=== PATIENT | female | born 1955 | race Caucasian/White ===

== ENCOUNTER 2016-04-01 23:31 | Inpatient (IN) | payer MEDICARE, OTHER ==
[~2016-04-01] VITALS: Ht 167.6 cm; Wt 86.1 kg
[2016-04-01] MEDS ORDERED: ALBUTEROL 0.5% (NEB) 2.5 MG/0.5 ML AMP HHN STA (23:35)
[2016-04-01] MEDS ORDERED: ASPIRIN 325 MG TAB PO STA (23:35)
[2016-04-01] MEDS ORDERED: ONDANSETRON 4 MG INJ IV STA (23:35)
[2016-04-02] VITALS (11 sets, daily range): BP systolic 102–153; BP diastolic 56–94; PULSE 75–87; RESP 15–20; TEMP 98.2; Ht 167.6 cm; Wt 86.1 kg
[2016-04-02] MEDS ORDERED: IPRATROPIUM (NEB) 0.5 MG/2.5 ML AMP HHN ONE
--- NOTE | 2016-04-02 | RADRPT ---
PROCEDURE: XR Chest. CLINICAL INDICATION: Patient experiencing Chest Pain. TECHNIQUE: Single portable chest COMPARISON: None FINDINGS: The cardiomediastinal silhouette is within normal limits. Vascular congestion and bilateral patchy air space disease suggestive of pulmonary edema. No pleural effusion or focal consolidation. No pne umothorax. The osseous structures and soft tissues are unremarkable. IMPRESSION: Vascular congestion versus pneumonia. Correlate clinically. No pleural effusion. RPTAT:AAJJ Humphrey Machuca Physician Date Time Electronically viewed and signed by Humphrey Machuca Physician on 04/02/2016 00:00 ROXANNA/
[2016-04-02] MEDS ORDERED: VANCOMYCIN 1 GM (PMX) 250 ML IVPB SCH (00:30)
[2016-04-02] MEDS ORDERED: PIPER-TAZO 3.375 GM IV (PMX) 100 ML IVPB ONE (00:30)
[2016-04-02 00:34] LABS: INR 0.92; PROTIME 12.4 Sec (12.2-14.2)
[2016-04-02 00:35] LABS: PARTIAL THROMBOPLASTIN TIME 25.2 Sec (25.0-35.0)
[2016-04-02 00:36] LABS: AADO2 Arterial 175.2 mmHg (7.0-24.0); Arterial COHb 7.7 % (0.0-3.0); Arterial Fraction of Oxyhgb 87.5 % (93.0-99.0); Arterial HCO3 22.5 mmol/L (22.0-26.0); Arterial MetHb 0.3 % (0.0-1.5); Arterial Total Hemglobin 15.3 g/dl (12.0-18.0); Blood Gas IEPAP 16 / 6; MODE MASK - BIPAP
[2016-04-02 00:37] LABS: TROPONIN-I 0.039 ng/ml (0.00-0.12)
[2016-04-02 00:38] LABS: CALCIUM 8.4 mg/dl (8.4-10.2); CREATININE 0.91 mg/dl (0.44-1.00); POTASSIUM 3.8 mmol/L (3.5-5.1)
[2016-04-02 00:49] LABS: BASOPHIL # 0.1 10^3/ul (0.0-0.1); BASOPHILS % 0.6 % (0.0-2.0); EOSINOPHILS # 0.2 10^3/ul (0.0-0.5); EOSINOPHILS % 1.6 % (0.0-7.0); HEMATOCRIT 45.9 % (37.0-47.0); HEMOGLOBIN 15.4 g/dl (12.0-16.0); LYMPHOCYTES # 4.6 10^3/ul (0.8-2.9); LYMPHOCYTES % 33.4 % (15.0-51.0); MEAN CORPUSCULAR HEMOGLOBIN 29.8 pg (29.0-33.0); MEAN CORPUSCULAR HGB CONC 33.5 g/dl (32.0-37.0); MONOCYTE # 1.8 10^3/ul (0.3-0.9); MONOCYTES % 13.2 % (0.0-11.0); NEUTROPHIL # 7.1 10^3/ul (1.6-7.5); NEUTROPHILS % 51.2 % (39.0-77.0); PLATELET COUNT 260 10^3/UL (140-440); RED BLOOD COUNT 5.15 10^6/ul (4.20-5.40); RED CELL DISTRIBUTION WIDTH 16.5 % (11.5-14.5); UNCORRECTED WBC 13.9 10^3/ul (4.8-10.8); WHITE BLOOD COUNT 13.9 10^3/ul (4.8-10.8)
[2016-04-02 00:55] LABS: CONDITION 1; LH ANALYZER COMMENTS 1
[2016-04-02] MEDS ORDERED: SOD CHLORIDE 0.9% 250 ML IV ONE (02:00)
[2016-04-02] MEDS ORDERED: SOD CHLORIDE 0.9% 1,000 ML IV ONE (02:00)
--- NOTE | 2016-04-02 02:48 | RADRPT ---
PROCEDURE: XR Chest. CLINICAL INDICATION: Reevaluate for pulmonary edema. TECHNIQUE: Single frontal view of the chest was obtained COMPARISON: Chest dated 04/01/2016. FINDINGS: Cardiomegaly. Patchy bilateral air space disease with pulmonary congestion and atelectasis at the right mid lung a nd at the left lung and lung base. Otherwise there is improved aeration bilateral lungs over interva l. Findings are compatible with decreased/improved mild failure. There is no evident pulmonary terrence a. There is no pleural effusion or pneumothorax. IMPRESSION: Decreased mild failure. RPTAT: [facility] Physician Rupali Date Time Electronically viewed and signed by Physician Rupali on 04/02/2016 02:48 RS/
[2016-04-02 03:13] LABS: AADO2 Arterial 211.5 mmHg (7.0-24.0); Arterial Base Excess -2.3 mmol/L (-3.0-3); Arterial COHb 4.1 % (0.0-3.0); Arterial Fraction of Oxyhgb 91.4 % (93.0-99.0); Arterial HCO3 24.5 mmol/L (22.0-26.0); Arterial MetHb 0.3 % (0.0-1.5); Arterial Total Hemglobin 13.6 g/dl (12.0-18.0); Blood Gas IEPAP 18 / 6; Blood Gas PS 12; MODE MASK - BIPAP
[2016-04-02 03:48] LABS: ADD UMIC YES; URINE BILIRUBIN (Dip) NEGATIVE (NEGATIVE); URINE BLOOD (Dip) NEGATIVE (NEGATIVE); URINE COLOR YELLOW (YELLOW); URINE KETONES (Dip) NEGATIVE (NEGATIVE); URINE LEUKOCYTE ESTERASE (Dip) NEGATIVE (NEGATIVE); URINE NITRITE (Dip) NEGATIVE (NEGATIVE); URINE TOTAL PROTEIN (Dip) 2+ (NEGATIVE); URINE UROBILINOGEN (Dip) 0.2 E.U./dL (0.1-1.0)
[2016-04-02 04:37] LABS: BACTERIA,URINE MODERATE; SQUAMOUS EPITHELIAL CELL,UR FEW; URINE RBCS 0-2 /HPF (0)
--- NOTE | 2016-04-02 05:59 | ERA ---
ER Documentation Chief Complaint Date/Time DATE: 04/02/16 TIME: 05:49 Chief Complaint SOB HPI This 60-year-old female came in for severe respiratory distress from her psychiatric inpatient facility. States she been short of breath for 2 days. She is in respiratory extremis now and can only speak in shaking her head and a couple words at a time. Denies any pain including chest pain. States that she has felt like she had fevers and chills and believes that she may have been developing pneumonia. Has no nausea. ROS All systems reviewed and are negative except as per history of present illness. Allergies Allergies: Coded Allergies: Sulfa (Sulfonamide Antibiotics) (Verified Allergy, Severe, 04/02/16) PMhx/Soc History of Surgery: No Anesthesia Reaction: No Hx Neurological Disorder: No Hx Respiratory Disorders: No Hx Cardiac Disorders: Yes (HTN ) Hx Psychiatric Problems: Yes (DEPRESSION) Hx Miscellaneous Medical Probl: No Hx Alcohol Use: Yes (OCCASIONAL) Hx Substance Use: No Hx Tobacco Use: Yes Smoking Status: Current every day smoker Physical Exam Vitals Vital Signs Date Time Temp Pulse Resp B/P Pulse Ox O2 Delivery O2 Flow Rate FiO2 04/02/16 05:00 82 20 103/71 95 BIPAP 04/02/16 04:00 98.4 83 20 99/68 94 BIPAP 04/02/16 03:00 89 20 102/70 98 BIPAP 04/02/16 02:50 90 94 30 04/02/16 02:05 101 94 50 04/02/16 02:00 100 20 95/61 96 BIPAP 04/02/16 00:10 140 95 50 04/01/16 23:40 101.0 152 28 161/135 83 04/01/16 23:40 Non Rebreather 15.0 04/01/16 23:40 Non Rebreather 15 04/01/16 23:35 150 100 100 Physical Exam Const: [] Severe respiratory distress Head: Atraumatic Eyes: Normal Conjunctiva ENT: Normal External Ears, Nose and Mouth. Neck: Full range of motion..~ No meningismus. Resp: Right basilar rhonchorous breath sounds, bilateral expiratory wheezes, tachypnea Cardio: Significant regular tachycardia no murmurs Abd: Soft, non tender, non distended. Normal bowel sounds Skin: No petechiae or rashes, very diaphoretic Back: No midline or flank tenderness Ext: No cyanosis, or edema Neur: Awake and alert Psych: Normal Mood and Affect Result Diagram: 04/01/16 2339 04/01/16 2339 Results 24 hrs Laboratory Tests Test 04/01/16 23:35 04/01/16 23:39 04/02/16 02:05 04/02/16 03:03 Arterial Blood HCO3 22.5mmol/L 24.5mmol/L Arterial Blood Base Excess -9.0mmol/L -2.3mmol/L Arterial Blood Oxygen Saturation 95.1mmHG 95.6mmHG Sumanth Test N/A N/A Arterial Blood Gas Puncture Site Right Brachial Right Brachial Arterial Blood Carboxyhemoglobin 7.7% 4.1% Arterial Blood Date Drawn 04/01/2016 11:50:10 PM 04/02/2016 3:00:49 AM Arterial Blood Methemoglobin 0.3% 0.3% Arterial Blood pCO2 (Temp correct) 76.0mmhg 50.5mmhg Arterial Blood pH (Temp corrected) 7.089 7.304 Arterial Blood pO2 (Temp corrected) 95.8mmHG 88.2mmHG Blood Gas A-a O2 Differential 175.2mmHg 211.5mmHg Blood Gas Actual Respiration Rate 42 20 Blood Gas Critical Value Read Back Humphrey GU DR. Blood Gas IPAP/EPAP Ratio Blood Gas Modality MASK - BIPAP MASK - BIPAP Blood Gas Notified Time 04/02/2016 12:36:10 AM 04/02/2016 3:12:55 AM Blood Gas Notified Whom BL BL Blood Gas Respiration Rate 24.0 18.0 Blood Gas Specimen Source Blood arterial Blood arterial Blood Gas Temperature 37.0C 37.0C FiO2 50.0% 50.0% Oxyhemoglobin Percent 87.5% 91.4% Total Hemoglobin 15.3g/dl 13.6g/dl Activated Partial Thromboplast Time 25.2Sec Anion Gap 19 B-Type Natriuretic Peptide 961PG/ML Basophils # 0.110^3/ul Basophils % 0.6% Blood Morphology Comment Blood Urea Nitrogen 15mg/dl Calcium Level 8.4mg/dl Carbon Dioxide Level 22mmol/L Chloride Level 105mmol/L Creatinine 0.91mg/dl Eosinophils # 0.210^3/ul Eosinophils % 1.6% Glucose Level 285mg/dl Hematocrit 45.9% Hemoglobin 15.4g/dl INR International Normalized Ratio 0.92 Lactic Acid Level 3.9mmol/L 1.8mmol/L Lymphocytes # 4.610^3/ul Lymphocytes % 33.4% Mean Corpuscular Hemoglobin 29.8pg Mean Corpuscular Hemoglobin Concent 33.5g/dl Mean Corpuscular Volume 89.0fl Mean Platelet Volume 9.0fl Monocytes # 1.810^3/ul Monocytes % 13.2% Neutrophils # 7.110^3/ul Neutrophils % 51.2% Nucleated Red Blood Cells # 0.010^3/ul Nucleated Red Blood Cells % 0.0/100WBC Platelet Count 92762^3/UL Potassium Level 3.8mmol/L Prothrombin Time 12.4Sec Prothrombin Time Ratio 1.0 Red Blood Count 5.1510^6/ul Red Cell Distribution Width 16.5% Sodium Level 142mmol/L Troponin I 0.039ng/ml White Blood Count 13.910^3/ul Blood Gas Pressure Support 12 Test 04/02/16 03:08 Urine Amorphous Phosphates Urine Amorphous Urates FEW Urine Bacteria MODERATE Urine Bilirubin NEGATIVE Urine Clarity CLEAR Urine Color YELLOW Urine Fine Granular Casts FEW Urine Glucose 0.1%% Urine Hemoglobin NEGATIVE Urine Ketones NEGATIVE Urine Leukocyte Esterase NEGATIVE Urine Microscopic RBC 0-2/HPF Urine Microscopic WBC 0-2/HPF Urine Nitrite NEGATIVE Urine Specific [place] >=1.030 Urine Squamous Epithelial Cells FEW Urine Total Protein 2+ Urine Urobilinogen 0.2 E.U./dL Urine pH 5.5 Current Medications Medications (Trade) Dose Ordered Sig/Swathi Route PRN Reason Start Time Stop Time Status Last Admin Dose Admin Aspirin (Aspirin) 325 mg ONCE STAT PO 04/01/16 23:35 04/01/16 23:37 DC 04/02/16 00:34 Ondansetron HCl (Zofran Inj) 4 mg ONCE STAT IV 04/01/16 23:35 04/01/16 23:37 DC 04/02/16 00:34 Albuterol (Proventil 0.5% (Neb)) 10 mg ONCE STAT HHN 04/01/16 23:35 04/01/16 23:37 DC 04/01/16 23:40 Ipratropium [place] 1 mg 1 mg ONCE ONCE HHN 04/02/16 00:00 04/02/16 00:01 DC 04/01/16 23:40 Vancomycin HCl 250 ml @ 125 mls/hr ONCE IVPB 04/02/16 00:30 04/02/16 02:29 DC 04/02/16 00:58 Piperacillin Sod/ Tazobactam Sod 100 ml @ 200 mls/hr ONCE ONCE IVPB 04/02/16 00:30 04/02/16 00:59 DC 04/02/16 00:32 Sodium Chloride 1,000 ml @ 1,000 mls/hr Q1H ONCE IV 04/02/16 02:00 04/02/16 02:59 DC 04/02/16 01:45 Sodium Chloride (NS) 250 ml @ 250 mls/hr Q1H ONCE IV 04/02/16 02:00 04/02/16 02:59 DC 04/02/16 01:51 Procedures/MDM Pneumonia with sepsis and significant respiratory distress yesterday failure requiring BiPAP. Patient was immediately placed on BiPAP and her oxygenation began to improve from hypoxic status to mid 90s. She was given a large albuterol and Atrovent breathing treatments through the BiPAP. She remained extremely tachycardic but this gradually started to resolve. She was initially very hypertensive and this resolved with improvement of her respiratory status. She was treated with vancomycin and Zosyn and given sepsis does IV fluids. There is a mildly elevated BNP the possibility of some pulmonary edema on the chest x-ray. Repeat check x-ray was obtained and does not show any significant change in pulmonary edema. Patient did have a lactic acidosis with significant acidotic and her first blood gas. Fluids and continued BiPAP corrected this deficit. No signs of acute coronary syndrome. This patient significant his stream is still dependent on BiPAP the CO2 of 50 that would likely rise a few off BiPAP and admitting her to the ICU for further management. A spoke with Dr. Pineda who will be admitting. Critical care time 48 minutes: Includes management of hypoxic respiratory failure with use of nonevasive positive pressure ventilation, serious consideration of intubation, early antibiotic administration, very careful fluid administration, chart review, at least 20 minutes spent at the patient's bedside assessing his status all she was an extremist, repeat visits the patient 's bedside to reassess status, discussion with patient admitting doctor. This does not include any billable procedures EKG interpretation: Sinus tachycardia rate of 155, normal axis, no ST-T wave changes concerning for acute ischemia surveillance system monitor interpretation extreme sinus tachycardia gradually resolved with no other arrhythmias Chest x-ray interpretation: Right-sided lower patchy pneumonia, no pneumothorax , no widened mediastinum, no fractures Departure Diagnosis: Primary Impression: Sepsis due to pneumonia Additional Impressions: Acute respiratory failure with hypoxia Lactic acidosis Hyperglycemia Condition: Serious MELISSANANCYELDIONNE BANUELOS Apr 02, 2016 05:59
[2016-04-02 06:40] LABS: CK-MB 1.87 ng/ml (0.0-2.4)
[2016-04-02] MEDS ORDERED: CEFTRIAXONE 1 GM/50 ML (PMX) 50 ML IVPB SCH (07:00)
[2016-04-02] MEDS ORDERED: NACL 0.9% 3 ML SYG IV SCH (07:00)
[2016-04-02] MEDS ORDERED: morphine 2 MG INJ IV PRN (07:00)
[2016-04-02] MEDS ORDERED: DOCUSATE SODIUM 100 MG CAP PO PRN (07:00)
[2016-04-02] MEDS ORDERED: ONDANSETRON 4 MG INJ IV PRN (07:00)
[2016-04-02] MEDS ORDERED: HYDROCODONE/APAP (5/325) TAB PO PRN (07:00)
[2016-04-02] MEDS ORDERED: ACETAMINOPHEN 325 MG TAB PO PRN (07:00)
[2016-04-02 07:09] LABS: TROPONIN-I 0.098 ng/ml (0.00-0.12)
--- NOTE | 2016-04-02 09:47 | HP ---
DATE OF ADMISSION: 04/02/2016 TIME: 6:30 a.m. CHIEF COMPLAINT: Shortness of breath. HISTORY OF PRESENT ILLNESS: The patient is a 60-year-old female with a history of psychiatric disorder. The patient presents for psychiatric inpatient facility with respiratory dist ress. The patient has been short of breath for the past 2 days. The patient is on BiPAP and she ca n only respond minimally. She denies any pain. She does report a cough, but she denies any sputum production. She states that she felt like she had fevers and chills felt that she was developing pn eumonia. She had no prior history of these symptoms. She denies any chest pain. She denies any GI symptoms. In the ED, the chest x-ray showed vascular congestion versus pneumonia. She has no othe r complaints reported. PAST MEDICAL HISTORY: Hypertension. PAST SURGICAL HISTORY: Denies, however, she does not remember at this time. HOME MEDICATIONS: Unknown. ALLERGIES: SULFA. FAMILY HISTORY: Noncontributory. SOCIAL HISTORY: Denies any drug abuse. Does state that she drinks but does not abuse it. She does smokes. REVIEW OF SYSTEMS: A 12-point review of systems is difficult to obtain, the patient is on BiPAP but is negative except for that as mentioned in HPI. PHYSICAL EXAMINATION: VITAL SIGNS: Temperature is 98.4, pulse is 80, respiratory rate is 20, blood pressure 111/70, satur ation 95% on BiPAP. GENERAL: No acute distress, alert. HEENT: Normocephalic, atraumatic. LUNGS: Clear to auscultation. CARDIOVASCULAR: Regular rate and rhythm. ABDOMEN: Nondistended, nontender, soft. EXTREMITIES: No clubbing, cyanosis, or edema. LABORATORIES: White count 13.9, hemoglobin 16.4, platelets are 260. Chemistry normal limits except for anion gap of 19, glucose 285. Lactic acid was 2.9, now 1.8. BNP is 961. ABG: pH is 7.089, t hen O2 is 95.8, pCO2 76.0. The patient has improved, pH is 7.304, pCO2 is 50.5. Urine is negative except for 2+ protein. DIAGNOSTICS: Chest x-ray, vascular congestion versus pneumonia. Correlate clinically. No pleural effusion. Follow up chest x-ray shows decreased mild failure. ASSESSMENT AND PLAN: 1. Acute respiratory distress secondary to a chronic obstructive pulmonary disease exacerbation and /or pneumonia and/or pulmonary edema. We will admit to telemetry. The patient's ABG has significan tly improved. She did have significant hypercapnia on arrival, which is now improved with BiPAP. W ill get pulmonology consultation. Will treat with antibiotics as well as Lasix. Will get a 2D echo . 2. Acute encephalopathy secondary to hypercapnia from underlying chronic obstructive pulmonary dise ase, now improved with BiPAP. 3. History of psychiatric disorders. Her home medications are not known at this time. Will have t o obtain 4. History of hypertension. Blood pressure is on the low side at this time. No need for medicatio ns at this time. 5. Leukocytosis, possibly secondary to pneumonia. Will treat with intravenous antibiotics. 6. Hyperglycemia. Will check A1c. The patient has no reported history of diabetes. 7. Prophylaxis, Lovenox. Dictated By: LUIS ZENG MD BS/ANUPAMA Conf#: [id number] DID#: [id number]
[2016-04-02] MEDS: FUROSEMIDE 40 MG INJ IV SCH (11:18)
[2016-04-02] MEDS: AZITHROMYCIN 500MG/NS (PMX) 250 ML IVPB SCH ×2 (11:20→14:49)
[2016-04-02] MEDS: ENOXAPARIN 40 MG/0.4 ML SYG SC SCH (11:39)
[2016-04-02] MEDS: predniSONE 20 MG TAB PO SCH (16:58)
[2016-04-02] MEDS: ZOLPIDEM 5 MG TAB PO PRN (21:01)
[2016-04-03] VITALS (14 sets, daily range): BP systolic 110–152; BP diastolic 60–83; PULSE 73–135; RESP 15–20
--- NOTE | 2016-04-03 | PN ---
Date/Time of Note Date/Time of Note DATE: 04/02/16 TIME: 13:00 Assessment/Plan VTE Prophylaxis VTE Prophylaxis Intervention: SCD's Lines/Catheters IV [facility]ter [facility]from [facility] Saline Lock Urinary Cath still in place: No Assessment/Plan Assessment/Plan please see H&P from today by Dr. Pineda Exam/Review of Systems Vital Signs Vitals Vital Signs Date Time Temp Pulse Resp B/P Pulse Ox O2 Delivery O2 Flow Rate FiO2 04/02/16 23:59 98.1 84 20 153/74 93 04/02/16 20:00 2.0 04/02/16 08:40 Nasal Cannula 04/02/16 06:30 21 Intake and Output 04/02/16 04/02/16 04/03/16 15:00 23:00 07:00 Intake Total 50 ml 1100 ml Output Total 1350 ml Balance 50 ml -250 ml Results Result Diagram: 04/01/16 2339 04/01/16 2339 Results 24 hrs Laboratory Tests Test 04/02/16 02:05 04/02/16 03:03 04/02/16 03:08 04/02/16 05:20 Lactic Acid Level 1.8 1.0 Arterial Blood HCO3 24.5 Arterial Blood Base Excess -2.3 Arterial Blood Oxygen Saturation 95.6 Sumanth Test N/A Arterial Blood Gas Puncture Site Right Brachial Arterial Blood Carboxyhemoglobin 4.1 H Arterial Blood Date Drawn 04/02/2016 3:00:49 AM Arterial Blood Methemoglobin 0.3 Arterial Blood pCO2 (Temp correct) 50.5 H Arterial Blood pH (Temp corrected) 7.304 L Arterial Blood pO2 (Temp corrected) 88.2 Blood Gas A-a O2 Differential 211.5 H Blood Gas Actual Respiration Rate 20 Blood Gas Critical Value Read Back Humphrey TODD. Blood Gas IPAP/EPAP Ratio 18 / 6 Blood Gas Modality MASK - BIPAP Blood Gas Notified Time 04/02/2016 3:12:55 AM Blood Gas Notified Whom BL Blood Gas Pressure Support 12 Blood Gas Respiration Rate 18.0 Blood Gas Specimen Source Blood arterial Blood Gas Temperature 37.0 FiO2 50.0 Oxyhemoglobin Percent 91.4 L Total Hemoglobin 13.6 Urine Amorphous Phosphates Urine Amorphous Urates FEW Urine Bacteria MODERATE Urine Bilirubin NEGATIVE Urine Clarity CLEAR Urine Color YELLOW Urine Fine Granular Casts FEW Urine Glucose 0.1% H Urine Hemoglobin NEGATIVE Urine Ketones NEGATIVE Urine Leukocyte Esterase NEGATIVE Urine Microscopic RBC 0-2 Urine Microscopic WBC 0-2 Urine Nitrite NEGATIVE Urine Specific [place] >=1.030 H Urine Squamous Epithelial Cells FEW Urine Total Protein 2+ H Urine Urobilinogen 0.2 E.U./dL Urine pH 5.5 Creatine Kinase 114 Creatine Kinase Index 1.6 Creatinine Kinase MB (Mass) 1.87 Troponin I 0.098 Test 04/02/16 05:26 Hemoglobin A1c 5.5 Medications Medications Current Medications Ondansetron HCl (Zofran Inj) 4 mg Q6H PRN IV NAUSEA AND/OR VOMITING; Start 04/02 at 07:00 Acetaminophen (Tylenol Tab) 650 mg Q6H PRN PO PAIN LEVEL 1-3 OR FEVER; Start at 07:00 Acetaminophen/ Hydrocodone Bitart ([place] (5/325)) 1 tab Q6H PRN PO MODERATE PAIN LEVEL 4-6; Start 04/02/16 at 07:00 Morphine Sulfate (morphine) 2 mg Q4H PRN IV SEVERE PAIN LEVEL 7-10; Start at 07:00 Docusate Sodium (Colace) 100 mg Q12H PRN PO CONSTIPATION; Start 04/02/16 at 07: 00 Zolpidem Tartrate (Ambien) 5 mg QHS PRN PO SLEEP Last administered on 04/02/16 21:01; Admin Dose 5 MG; Start 04/02/16 at 07:00 Enoxaparin Sodium (Lovenox) 40 mg DAILY SC Last administered on 04/02/16 11:39 ; Admin Dose 40 MG; Start 04/02/16 at 09:00 Furosemide 40 mg 40 mg DAILY@06 IV Last administered on 04/02/16 11:18; Admin Dose 40 MG; Start 04/02/16 at 07:00 Azithromycin (Zithromax 500mg/ NS (Pmx)) 250 ml @ 250 mls/hr Q24H IVPB Last administered on 04/02/16 14:49; Admin Dose 250 MLS/HR; Start 04/02/16 at 09:00 Prednisone (Prednisone) 60 mg DAILY PO Last administered on 04/02/16 16:58; Admin Dose 60 MG; Start 04/02/16 at 16:00 GEORGE DRISCOLL MD Apr 03, 2016 00:00
[2016-04-03] MEDS: FUROSEMIDE 40 MG INJ IV SCH (05:42)
[2016-04-03 06:12] LABS: BASOPHILS % 0.3 % (0.0-2.0); HEMOGLOBIN 12.1 g/dl (12.0-16.0); LYMPHOCYTES # 0.6 10^3/ul (0.8-2.9); LYMPHOCYTES % 17.3 % (15.0-51.0); MEAN CORPUSCULAR HEMOGLOBIN 29.7 pg (29.0-33.0); MEAN CORPUSCULAR HGB CONC 33.7 g/dl (32.0-37.0); MONOCYTE # 0.3 10^3/ul (0.3-0.9); MONOCYTES % 7.9 % (0.0-11.0); NEUTROPHIL # 2.6 10^3/ul (1.6-7.5); NEUTROPHILS % 74.5 % (39.0-77.0); PLATELET COUNT 146 10^3/UL (140-440); RED BLOOD COUNT 4.09 10^6/ul (4.20-5.40); RED CELL DISTRIBUTION WIDTH 16.6 % (11.5-14.5); UNCORRECTED WBC 3.5 10^3/ul (4.8-10.8); WHITE BLOOD COUNT 3.5 10^3/ul (4.8-10.8)
[2016-04-03 06:17] LABS: CONDITION 1; LH ANALYZER COMMENTS 1
[2016-04-03 06:34] LABS: ALBUMIN 3.1 g/dl (3.3-4.9)
[2016-04-03 06:37] LABS: ALBUMIN/GLOBULIN RATIO 1.24; CREATININE 0.6 mg/dl (0.44-1.00); TOTAL PROTEIN 5.6 g/dl (6.1-8.1)
[2016-04-03 06:38] LABS: CALCIUM 8.2 mg/dl (8.4-10.2); CHOL/HDL RATIO 4.4 RATIO
--- NOTE | 2016-04-03 07:26 | CONS ---
DATE OF ADMISSION: 04/02/2016 DATE OF CONSULTATION: 04/02/2016 HISTORY OF PRESENT ILLNESS: Briefly, this is a 60-year-old female with unclear psychiatric history, who is a resident of an inpatient psychiatric facility, and was transferred to [facility] last night for worsening shortness of breath over the course of 2 days. Of note, she does s brody that she was hospitalized a week or so ago at [place] with respiratory failure and required intu bation; however, it is unclear about what the cause. At this point, she denies any fevers, chills, rigors, but she does admit to cough. Upon admission, the patient was noted to have acute hypercapni c respiratory failure and required initiation of BiPAP. She has currently been weaned off the BiPAP and is on nasal cannula. PAST MEDICAL HISTORY: Hypertension. PAST SURGICAL HISTORY: Denies. MEDICATIONS: Please see MAR. ALLERGIES: SULFA. SOCIAL HISTORY: Active smoker at 1 pack per day. No alcohol or illicit drug use. FAMILY HISTORY: Noncontributory. REVIEW OF SYSTEMS: As noted in the HPI. PHYSICAL EXAMINATION: VITAL SIGNS: Heart rate is 86, blood pressure is 102/56, oxygen saturation is 93% on 2 liters nasal cannula. HEENT: Normocephalic, atraumatic. NECK: Supple, no thyromegaly, no jugular venous distention. CARDIOVASCULAR: Regular rate and rhythm, S1 and S2 are distant, a I-II/ systolic murmur. CHEST: There is diffuse wheezing and rhonchi heard bilaterally. ABDOMEN: Soft, nontender, obese. EXTREMITIES: No cyanosis, clubbing, or edema. LABORATORY DATA: Initial ABG: pH was 7.09, pCO2 76. Current ABG: pH is 7.30, paCO2 of 51, pO2 is 88. Chem-7 shows a normal bicarbonate. Lactate was 3.9. Troponin was negative. Coags are within normal limits. Chest x-ray shows hyperinflation and mild pulmonary venous congestion. IMPRESSION: 1. Acute hypercapnic and hypoxemic respiratory insufficiency, in a patient with no underlying chron ic hypercapnic respiratory insufficiency; however who likely does have chronic obstructive pulmonary disease. Etiology is likely due to pulmonary edema. At this point, it does not appear that she grimes d an acute coronary event. Her improvement is likely attributable to diuresis and positive pressure ventilation. RECOMMENDATIONS: 1. Follow troponins. 2. Check a 2D echo. 3. Continue Lasix. 4. Given a possibility of coexisting COPD exacerbation, would continue antibiotics; however, would deescalate and initiate daily dosed prednisone for now. 5. DVT prophylaxis. 6. Will require outpatient PFTs. 7. If 2D echo does not show any wall motion abnormalities, then she will require some form of cardi ac risk stratification prior to discharge. Dictated By: DUNG GAMEZ MD NK/ANUPAMA Conf#: [id number] DID#: [id number] CC: LUIS ZENG MD;*EndCC*
[2016-04-03] MEDS: AZITHROMYCIN 500MG/NS (PMX) 250 ML IVPB SCH (09:08)
[2016-04-03] MEDS: predniSONE 20 MG TAB PO SCH (09:09)
--- NOTE | 2016-04-03 09:17 | RADRPT ---
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 Physician: LUIS ZENG Quality: Adequate Procedures: Transthoracic echocardiogram with complete 2D, M-Mode, and Doppler examination. Indications: Pulmonary edema. 2D/M Mode Doppler Measurement Value Normal Ranges Measurement Value Normal Ranges AoR Diam MM 3.2 cm AV Peak Shan 1.6 m/sec LVIDd 2D 4.4 3.5 - 5.6 cm AV Peak PG 10.9 mmHg LVIDs 2D 3.7 2.1 - 4.1 cm LVOT Peak Shan 0.9 m/sec LVPWd 2D 1.4 0.6 - 1.1 cm LVOT Peak PG 3.0 mmHg IVSd 2D 1.4 0.6 - 1.1 cm MV E Peak Shan 0.9 m/sec EDV 2D 89.5 cm3 MV A Peak Shan 1.2 m/sec ESV 2D 50.9 cm3 MV E/A 0.7 LA Dimen 2D 4.2 2.3 - 4.0 cm MV Decel Time 187 msec MV Decel [place] 5 MV E/A 0.7 Findings Left Ventricle: Normal left ventricular systolic function. Normal left ventricular cavity size. Mild concentric left ventricular hypertrophy. Ejection fraction is visually estimated at 55 %. Tissue Doppler/Mitral Doppler indices are consistent with impaired relaxation (Stage I diastolic dysfunction). E/E`=13. E`=0 cm/s. Right Ventricle: Normal right ventricular size. Normal right ventricular systolic function. Left Atrium: There is severe enlargement of left atrium, seen best in apical images. Right Atrium: There is mild enlargement of right atrium. Atrial Septum: Normal atrial septum. Mitral Valve: Normal appearance of the mitral valve. Mild to moderate mitral valve regurgitation. Aortic Valve: Normal appearance of the aortic valve. No hemodynamically significant aortic stenosis by doppler. Mild aortic valve regurgitation. Tricuspid Valve: Normal appearance and function of the tricuspid valve with trace physiologic regurgitation. Unable to obtain RVSP due to minimal presence of tricuspid regurgitation. Pulmonic Valve: Pulmonic valve not well visualized. Pericardium: Normal pericardium with no significant pericardial effusion. Aorta: Normal aortic root. IVC: Normal size and normal respiratory collapse consistent with normal right atrial pressure. Pulmonary Artery: Not well visualized. Conclusions 1.Normal left ventricular systolic function. Normal left ventricular cavity size. Mild concentric left ventricular hypertrophy. Ejection fraction is visually estimated at 55 %. Tissue Doppler/Mitral Doppler indices are consistent with impaired relaxation (Stage I diastolic dysfunction). 2.There is severe enlargement of left atrium. 3.Mild to moderate mitral valve regurgitation. 4.Mild aortic valve regurgitation. 5.Unable to obtain RVSP due to minimal presence of tricuspid regurgitation. RA pressure is 3 mmHg. Electronically Signed By: Kvng Ibarra 03-Apr-2016 09:16:31 -0800 Patient Name: NILSA DELUCA Study Date: 02-Apr-[id number]
[2016-04-03] MEDS: ENOXAPARIN 40 MG/0.4 ML SYG SC SCH (09:21)
--- NOTE | 2016-04-03 11:17 | PN ---
Date/Time of Note Date/Time of Note DATE: 04/03/16 TIME: 11:09 Assessment/Plan VTE Prophylaxis VTE Prophylaxis Intervention: LMWH Lines/Catheters IV [facility]ter [facility]from [facility] Saline Lock Urinary Cath still in place: No Assessment/Plan Assessment/Plan 1. Acute respiratory distress secondary to a chronic obstructive pulmonary disease exacerbation and/or pneumonia and/or pulmonary edema. - doing well - appreciate pulm recs, wean off of O2 - improved ABG 2. Acute encephalopathy secondary to hypercapnia from underlying chronic obstructive pulmonary disease, s/p BiPAP - improved mentation - 3. Psychiatric disorders. Her home medications are not known at this time. Will have to obtain - 4. Essential hypertension. Blood pressure stable. No need for medications at this time. 5. Leukocytosis - resolved 6. Hyperglycemia. A1c - 5.5 - stable, outpatient follow up 7. Smoking abuse - will start wellbutrin 150 mg daily x 3 days, then 150 mg bid thereafter 8. Prophylaxis, Lovenox. dispo - continue with weaning O2, f/u recs, as per clinical course. this progress note took greater than 40 minutes to complete Subjective 24 Hr Interval Summary Free Text/Dictation Patient had no overnight events. Spoke to her about smoking cessation. She does not want the nicorrette gum or patch, wants to try medications. Wellbutrin offered. Need to reconcile medications, since already on antidepressant. Otherwise no fevers/chills. Spoke to her about the care plan. 20 minutes spent. Exam/Review of Systems Vital Signs Vitals Vital Signs Date Time Temp Pulse Resp B/P Pulse Ox O2 Delivery O2 Flow Rate FiO2 04/03/16 08:07 83 04/03/16 08:00 98.3 20 119/73 98 Nasal Cannula 2.0 04/02/16 06:30 21 Intake and Output 04/02/16 04/02/16 04/03/16 15:00 23:00 07:00 Intake Total 50 ml 1100 ml 600 ml Output Total 1350 ml 950 ml Balance 50 ml -250 ml -350 ml Exam Gen Emi: mild respiratory distress, AAOx4 HEENT: NC/AT, PERRLA, EOMI, no pharyngeal erythema, no tonsillar exudates, no lymphadenopathy, no JVD, no carotid bruits NECK: supple, no thyromegaly THORAX: symmetrical, no obvious deformities CV: S1S2, RRR, no M/G/R Lungs: decreased aeration bibasilar - no acute wheezing or crackles appreciated Abd: soft, NT/ND, +BS, no rebound, no guarding, neg HSM EXT: no edema, no ecchymosis, no clubbing, FROM Neuro: CN II-XII grossly intact, no focal deficits Psych: good mentation, alert and oriented, good mood and affect Skin: C/D/I Results Result Diagram: 04/03/1650904/03/16 0510 Results 24 hrs Laboratory Tests Test 04/03/16 05:10 Alanine Aminotransferase (ALT/SGPT) 129 H Albumin 3.1 L Albumin/Globulin Ratio 1.24 Alkaline Phosphatase 193 H Anion Gap 14 Aspartate Amino Transf (AST/SGOT) 43 Basophils # 0.0 Basophils % 0.3 Blood Morphology Comment Blood Urea Nitrogen 19 Calcium Level 8.2 L Carbon Dioxide Level 28 Chloride Level 106 Cholesterol Level 120 Cholesterol/HDL Ratio 4.4 Creatinine 0.60 Direct Bilirubin 0.00 Eosinophils # 0.0 Eosinophils % 0.0 Free Thyroxine Index 1.79 Globulin 2.50 Glucose Level 109 # HDL Cholesterol 27 L Hematocrit 36.0 #L Hemoglobin 12.1 # Indirect Bilirubin 0.0 LDL Cholesterol, Calculated 71 Lactic Acid Level 0.8 Lymphocytes # 0.6 L Lymphocytes % 17.3 Magnesium Level 2.0 Mean Corpuscular Hemoglobin 29.7 Mean Corpuscular Hemoglobin Concent 33.7 Mean Corpuscular Volume 88.0 Mean Platelet Volume 9.0 Monocytes # 0.3 Monocytes % 7.9 Neutrophils # 2.6 Neutrophils % 74.5 Nucleated Red Blood Cells # 0.0 Nucleated Red Blood Cells % 0.0 Phosphorus Level 4.0 Platelet Count 146 # Potassium Level 4.0 Red Blood Count 4.09 #L Red Cell Distribution Width 16.6 H Sodium Level 144 Thyroxine (T4) 5.6 Total Bilirubin 0.0 L Total Protein 5.6 L Triglycerides Level 108 Triiodothyronine (T3) Uptake 32.0 Troponin I 0.017 White Blood Count 3.5 #L Medications Medications Current Medications Ondansetron HCl (Zofran Inj) 4 mg Q6H PRN IV NAUSEA AND/OR VOMITING; Start 04/02 at 07:00 Acetaminophen (Tylenol Tab) 650 mg Q6H PRN PO PAIN LEVEL 1-3 OR FEVER; Start at 07:00 Acetaminophen/ Hydrocodone Bitart ([place] (5/325)) 1 tab Q6H PRN PO MODERATE PAIN LEVEL 4-6; Start 04/02/16 at 07:00 Morphine Sulfate (morphine) 2 mg Q4H PRN IV SEVERE PAIN LEVEL 7-10; Start at 07:00 Docusate Sodium (Colace) 100 mg Q12H PRN PO CONSTIPATION; Start 04/02/16 at 07: 00 Zolpidem Tartrate (Ambien) 5 mg QHS PRN PO SLEEP Last administered on 04/02/16 21:01; Admin Dose 5 MG; Start 04/02/16 at 07:00 Enoxaparin Sodium (Lovenox) 40 mg DAILY SC Last administered on 04/03/16 09:21 ; Admin Dose 40 MG; Start 04/02/16 at 09:00 Furosemide 40 mg 40 mg DAILY@06 IV Last administered on 04/03/16 05:42; Admin Dose 40 MG; Start 04/02/16 at 07:00 Azithromycin (Zithromax 500mg/ NS (Pmx)) 250 ml @ 250 mls/hr Q24H IVPB Last administered on 04/03/16 09:08; Admin Dose 250 MLS/HR; Start 04/02/16 at 09:00 Prednisone (Prednisone) 60 mg DAILY PO Last administered on 04/03/16 09:09; Admin Dose 60 MG; Start 04/02/16 at 16:00 MARCO WADSWORTH MD Apr 03, 2016 11:16
[2016-04-03] MEDS: BUPROPION 75 MG TAB PO SCH ×2 (13:24→21:30)
--- NOTE | 2016-04-03 17:23 | CONS ---
Date/Time of Note Date/Time of Note DATE: 04/03/16 TIME: 17:19 Consult Date/Type/Reason Admit Date/Time Apr 02, 2016 at 03:08 Initial Consult Date Type of Consultation: Pulm Subjective No events. Less dyspnea Objective Vital Signs Date Time Temp Pulse Resp B/P Pulse Ox O2 Delivery O2 Flow Rate FiO2 04/03/16 16:01 73 04/03/16 15:46 98.1 20 152/83 94 04/03/16 08:20 2.0 04/03/16 08:00 Nasal Cannula 04/02/16 06:30 21 Intake and Output 04/02/16 04/02/16 04/03/16 15:00 23:00 07:00 Intake Total 50 ml 1100 ml 600 ml Output Total 1350 ml 950 ml Balance 50 ml -250 ml -350 ml HEENT: Normocephalic, atraumatic. NECK: Supple, no thyromegaly, no jugular venous distention. CARDIOVASCULAR: Regular rate and rhythm, S1 and S2 are distant, a I-II/ systolic murmur. CHEST: There is diffuse wheezing and rhonchi heard bilaterally. ABDOMEN: Soft, nontender, obese. EXTREMITIES: No cyanosis, clubbing, or edema. Results/Medications Result Diagram: 04/03/16 0510 04/03/16 0510 Results 24 hrs Laboratory Tests Test 04/03/16 05:10 Alanine Aminotransferase (ALT/SGPT) 129 H Albumin 3.1 L Albumin/Globulin Ratio 1.24 Alkaline Phosphatase 193 H Anion Gap 14 Aspartate Amino Transf (AST/SGOT) 43 Basophils # 0.0 Basophils % 0.3 Blood Morphology Comment Blood Urea Nitrogen 19 Calcium Level 8.2 L Carbon Dioxide Level 28 Chloride Level 106 Cholesterol Level 120 Cholesterol/HDL Ratio 4.4 Creatinine 0.60 Direct Bilirubin 0.00 Eosinophils # 0.0 Eosinophils % 0.0 Free Thyroxine Index 1.79 Globulin 2.50 Glucose Level 109 # HDL Cholesterol 27 L Hematocrit 36.0 #L Hemoglobin 12.1 # Indirect Bilirubin 0.0 LDL Cholesterol, Calculated 71 Lactic Acid Level 0.8 Lymphocytes # 0.6 L Lymphocytes % 17.3 Magnesium Level 2.0 Mean Corpuscular Hemoglobin 29.7 Mean Corpuscular Hemoglobin Concent 33.7 Mean Corpuscular Volume 88.0 Mean Platelet Volume 9.0 Monocytes # 0.3 Monocytes % 7.9 Neutrophils # 2.6 Neutrophils % 74.5 Nucleated Red Blood Cells # 0.0 Nucleated Red Blood Cells % 0.0 Phosphorus Level 4.0 Platelet Count 146 # Potassium Level 4.0 Red Blood Count 4.09 #L Red Cell Distribution Width 16.6 H Sodium Level 144 Thyroxine (T4) 5.6 Total Bilirubin 0.0 L Total Protein 5.6 L Triglycerides Level 108 Triiodothyronine (T3) Uptake 32.0 Troponin I 0.017 White Blood Count 3.5 #L Medications Current Medications Ondansetron HCl (Zofran Inj) 4 mg Q6H PRN IV NAUSEA AND/OR VOMITING; Start 04/02 at 07:00 Acetaminophen (Tylenol Tab) 650 mg Q6H PRN PO PAIN LEVEL 1-3 OR FEVER; Start at 07:00 Acetaminophen/ Hydrocodone Bitart ([place] (5/325)) 1 tab Q6H PRN PO MODERATE PAIN LEVEL 4-6; Start 04/02/16 at 07:00 Morphine Sulfate (morphine) 2 mg Q4H PRN IV SEVERE PAIN LEVEL 7-10; Start at 07:00 Docusate Sodium (Colace) 100 mg Q12H PRN PO CONSTIPATION; Start 04/02/16 at 07: 00 Zolpidem Tartrate (Ambien) 5 mg QHS PRN PO SLEEP Last administered on 04/02/16 21:01; Admin Dose 5 MG; Start 04/02/16 at 07:00 Enoxaparin Sodium (Lovenox) 40 mg DAILY SC Last administered on 04/03/16 09:21 ; Admin Dose 40 MG; Start 04/02/16 at 09:00 Furosemide 40 mg 40 mg DAILY@06 IV Last administered on 04/03/16 05:42; Admin Dose 40 MG; Start 04/02/16 at 07:00 Azithromycin (Zithromax 500mg/ NS (Pmx)) 250 ml @ 250 mls/hr Q24H IVPB Last administered on 04/03/16 09:08; Admin Dose 250 MLS/HR; Start 04/02/16 at 09:00 Prednisone (Prednisone) 60 mg DAILY PO Last administered on 04/03/16 09:09; Admin Dose 60 MG; Start 04/02/16 at 16:00 Bupropion HCl (Wellbutrin) 75 mg BID PO Last administered on 04/03/16t 13:24; Admin Dose 75 MG; Start 04/03/16 at 11:30 Assessment/Plan Additional Assessment/Plan IMPRESSION: 1. Acute hypercapnic and hypoxemic respiratory insufficiency, in a patient with no underlying chronic hypercapnic respiratory insufficiency; however who likely does have chronic obstructive pulmonary disease. Etiology is likely due to pulmonary edema. At this point, it does not appear that she had an acute coronary event. Her improvement is likely attributable to diuresis and positive pressure ventilation. RECOMMENDATIONS: 1. Continue Lasix. 2. De-escalate abx 3. DVT prophylaxis. 4. Will require outpatient PFTs. DUNG GAMEZ MD Apr 03, 2016 17:22
[2016-04-03] MEDS: ZOLPIDEM 5 MG TAB PO PRN (21:30)
[2016-04-04] VITALS (8 sets, daily range): BP systolic 118–133; BP diastolic 77–80; PULSE 66–87; RESP 17–20
[2016-04-04] MEDS: FUROSEMIDE 40 MG INJ IV SCH (05:31)
[2016-04-04 06:34] LABS: BASOPHILS % 0.3 % (0.0-2.0); EOSINOPHILS % 0.2 % (0.0-7.0); HEMATOCRIT 38.7 % (37.0-47.0); HEMOGLOBIN 13.1 g/dl (12.0-16.0); LYMPHOCYTES % 37.6 % (15.0-51.0); MEAN CORPUSCULAR HEMOGLOBIN 29.8 pg (29.0-33.0); MEAN CORPUSCULAR HGB CONC 33.8 g/dl (32.0-37.0); MEAN CORPUSCULAR VOLUME 88.1 fl (82.0-101.0); MEAN PLATELET VOLUME 8.8 fl (7.4-10.4); MONOCYTE # 0.6 10^3/ul (0.3-0.9); MONOCYTES % 10.7 % (0.0-11.0); NEUTROPHIL # 2.8 10^3/ul (1.6-7.5); NEUTROPHILS % 51.2 % (39.0-77.0); PLATELET COUNT 159 10^3/UL (140-440); RED BLOOD COUNT 4.39 10^6/ul (4.20-5.40); UNCORRECTED WBC 5.4 10^3/ul (4.8-10.8); WHITE BLOOD COUNT 5.4 10^3/ul (4.8-10.8)
[2016-04-04 06:43] LABS: POTASSIUM 3.5 mmol/L (3.5-5.1)
[2016-04-04 06:45] LABS: CREATININE 0.67 mg/dl (0.44-1.00)
[2016-04-04 06:46] LABS: CALCIUM 8.3 mg/dl (8.4-10.2)
[2016-04-04 06:47] LABS: CONDITION 1; LH ANALYZER COMMENTS 1
[2016-04-04] MEDS: BUPROPION 75 MG TAB PO SCH (08:54)
[2016-04-04] MEDS: AZITHROMYCIN 500MG/NS (PMX) 250 ML IVPB SCH (08:54)
[2016-04-04] MEDS: predniSONE 20 MG TAB PO SCH (08:54)
[2016-04-04] MEDS: ENOXAPARIN 40 MG/0.4 ML SYG SC SCH (09:02)
[2016-04-04] MEDS ORDERED: ALBUTEROL/IPRATROPIUM (NEB) 3 ML AMP HHN PRN (11:00)
[2016-04-04 12:09] LABS: AADO2 Arterial 32.7 mmHg (7.0-24.0); Allen Test ACCEPTAB; Arterial Base Excess 5.5 mmol/L (-3.0-3); Arterial COHb 0.6 % (0.0-3.0); Arterial Fraction of Oxyhgb 93.6 % (93.0-99.0); Arterial HCO3 29.1 mmol/L (22.0-26.0); Arterial MetHb 0.3 % (0.0-1.5); Arterial Total Hemglobin 14.9 g/dl (12.0-18.0); MODE ROOM AIR
--- NOTE | 2016-04-04 13:20 | PN ---
DATE: 04/04/2016 PULMONARY FOLLOWUP SUBJECTIVE: Chart reviewed. Events noted. Clinically, the patient feels better. PHYSICAL EXAMINATION: VITAL SIGNS: Blood pressure 133/78, pulse 73, respirations 17, temperature 98.4. Currently, patien t on 2 L O2 nasal cannula, saturating 98%. HEENT: Pupils are equal and reactive to light. Anicteric sclerae. NECK: Supple, no JVD noted, no cervical adenopathy, no carotid bruits heard. LUNGS: A few scattered rhonchi and wheezes bilaterally. CARDIOVASCULAR: S1, S2 normal. ABDOMEN: Soft, nontender. No organomegaly or masses noted. Obese. EXTREMITIES: No clubbing, cyanosis, or edema noted. NEUROLOGICAL: Awake. LABORATORY DATA: WBC 5.4, hemoglobin 13.1, hematocrit 38.7, platelets 159. Sodium 145, potassium 3 .5, chloride 104, CO2 31, BUN 20, creatinine 0.67, glucose 88. IMPRESSION: 1. Acute hypercapnic and hypoxemic respiratory failure, slowly improving. 2. Pulmonary edema. 3. Chronic obstructive pulmonary disease. 4. Obesity. RECOMMENDATIONS: 1. Continue diuresis. 2. Follow up chest x-ray. 3. Outpatient pulmonary function test to confirm underlying chronic obstructive pulmonary disease. 4. Followup labs. Dictated By: SHILOH LEONARDO MD, MA/ANUPAMA Conf#: [id number] DID#: [id number]
--- NOTE | 2016-04-04 13:52 | PDOCDIS ---
Discharge Instructions DIAGNOSIS Discharge Diagnosis: COPD exacerbation CONDITION Patient Condition: Stable HOME CARE INSTRUCTIONS: Diet Instructions: RegularSpecial Diet: Regular FOLLOW UP/APPOINTMENTS Appointments Erwin Olivier MD Specialty: Internal Medicine Office Address: [address] [place], [place] [id number] Office OTHER ORDERS: Other Orders: 1. Take medications as per prescription. 2. Avoid tobacco use. 3. Take a regular diet as tolerated. 4. Follow-up with your primary care physician in 2 weeks. If you do not have a primary care physician, please follow-up with Dr. Erwin Olivier's office. ABIGAIL TENORIO NP Apr 04, 2016 13:52
[2016-04-04] MEDS ORDERED: ADV25050 INHALATION (13:55)
[2016-04-04] MEDS ORDERED: FURO20TA PO (13:55)
[2016-04-04] MEDS ORDERED: BUPR75TA9 PO (13:55)
[2016-04-04] MEDS ORDERED: ALBU8.5H3 INH (13:55)
[2016-04-04] MEDS ORDERED: PRED20 PO (13:55)
[2016-04-04] MEDS ORDERED: ALBUTEROL/IPRATROPIUM (NEB) 3 ML AMP HHN SCH (14:00)
--- NOTE | 2016-04-05 07:31 | DS ---
DATE OF ADMISSION: 04/02/2016 DATE OF DISCHARGE: 04/04/2016 FINAL DIAGNOSES: 1. Acute hypercapnic and hypoxic respiratory failure. 2. Pulmonary edema secondary to diastolic heart failure. 3. Chronic obstructive pulmonary disease exacerbation. 4. Obesity. 5. Nicotine use. 6. Depression. CONSULTATIONS: 1. Jeff Graham MD, pulmonology. 2. Edgar Mancini MD, pulmonology. HOSPITAL COURSE: This is a 60-year-old female with a past medical history of psychiatric disorder who lives in a [facility], who came to the emergency room with a chief complaint of shortness of breath. The patient verbalized that she has been short of breath for the past 2 days or so. There was also a reported nonproductive cough. The patient also verbalized subjective fevers and chills. She denied any chest pain. In the emergency room, the patient underwent a chest x-ray that showed vascular congestion versus pneumonia. The patient was started on BiPAP therapy. The patient underwent an ABG that showed a pH of 7.089 with a pCO2 of 76.0. The patient was also noticed to have hyperglycemia. The patient's BNP was 961. The patient also had underlying lactic acidosis. Provided the patient's history of present illness and the diagnostic findings, a clinical decision was made to admit the patient to inpatient setting to have her further evaluated. The patient was admitted to inpatient telemetry floor. A pulmonary consult was obtained. A 2D echocardiogram was obtained. The patient was started on IV diuretics. The patient's acute hypercapnic hypoxic respiratory distress improved with noninvasive positive pressure ventilation and inhaled bronchodilators. The patient was maintained on empiric antibiotics for any underlying acute tracheobronchitis. The patient was aggressively diuresed based on the chest x-ray findings. The patient's 2D echocardiogram showed normal left ventricular cavity size with mild concentric left ventricular hypertrophy and stage I diastolic dysfunction with an ejection fraction of 55%. Hence, the patient was concluded to have diastolic heart failure. The patient responded well to diuretic therapy. The patient's repeat chest x-ray that was done on 04/02/2016 showed decreased pulmonary vascular congestion. Hence, it was concluded that the patient's symptomatology was secondary to diastolic heart failure, not because of any underlying pneumonia. Nevertheless , the patient was continued on empiric antibiotics for any underlying acute tracheobronchitis since the patient has underlying COPD. The patient was maintained on a tapering dose of p.o. steroids. The patient is a current tobacco user. The patient was started on bupropion. The patient was advised multiple times on the importance of quitting the use of tobacco. As mentioned earlier, the patient has an underlying psychotic disorder. The patient takes some medications at home. The patient was unable to provide a list of the same. Nonetheless, the patient was started on bupropion for underlying anxiety and for controlling nicotine withdrawal. The patient was noticed to have hyperglycemia upon admission. This could be most probably from acute exacerbation of CHF versus from steroids that the patient was getting for her underlying COPD. The patient's hemoglobin A1c was found to be 5.5. The patient was ruled out for any acute coronary syndrome. The patient's symptomatology improved. The patient's mental status improved with resolution of CO2 narcosis. The patient had a stable hospital course. The patient was cleared by consultants to be discharged home. The patient denied any complaints at the time of discharge. A room air ABG was done to evaluate the need for any home oxygen. Based on room air ABG, the patient does not qualify for any home oxygen. DISCHARGE DISPOSITION AND PLAN: The patient will be discharged home today. The patient was instructed to take medications as per prescription. The patient was instructed about quitting tobacco use. She was instructed to take a regular diet as tolerated. She was instructed to follow up with her primary care physician in 2 weeks and if she does not have the primary care physician to please call Dr. Erwin Olivier's office. The patient verbalized understanding of her discharge instructions. CONDITION AT DISCHARGE: Stable. DISCHARGE MEDICATIONS: 1. ProAir HFA 0.5 grams inhaled 2 puffs q.6h. p.r.n. shortness of breath. 2. Bupropion 75 p.o. b.i.d. 3. Lasix 20 mg p.o. daily. 4. Prednisone 40 mg p.o. daily x2 days, then Prednisone 20 mg p.o. x2 days, then prednisone 10 mg p.o. daily x2 days, then prednisone 5 mg p.o. daily x2 days. 5. Advair Diskus 250/50 one inhalation b.i.d. PERTINENT LABORATORY AND DIAGNOSTIC DATA: 1. 2D echocardiogram. Ejection fraction of 55%. Stage I diastolic dysfunction. Mild concentric left ventricular hypertrophy. Mild to moderate mitral valve regurgitation. Mild aortic valve regurgitation. Severe enlargement of the left atrium. 2. Latest chest x-ray. Patchy bilateral airspace disease with pulmonary congestion, atelectasis of the right mid lung and left lung base. No evidence of pulmonary edema. There is no pleural effusion or pneumothorax. 3. Latest ABG on room air: pH 7.4, pCO2 of 79.1, pO2 of 70.2, bicarbonate 29.1 , oxygen saturation 94.5, base excess 5.5. 4. Hemoglobin A1c 5.5. 5. Fasting lipid panel: Triglycerides 108, total cholesterol 120, LDL 71, AST 27. At this time, I would like to thank all the consultants for seeing the patient and providing clinical recommendations. The case and management of this patient was fully discussed with Dr. Morales. Approximately 40 minutes was spent on coordinating the discharge on this patient. ABIGAIL MORALES MD, AM/ANUPAMA Conf#: [id number] DID#: [id number]
[2016-04-05] MEDS ORDERED: predniSONE 20 MG TAB PO SCH (09:00)
== END 2016-04-04 15:15 | disposition home or self-care (01) | DRG 291 ==
LOC: E/R 23:31 → ICU 04-02 03:08 → TEL 04-02 08:06
PROVIDERS: ADMIT Internal Medicine; ATTEND Internal Medicine
PROC: 5A09357 Assistance with Respiratory Ventilation, Less than 24 Consecutive Hours, Continuous Positive Airway Pressure (ICD-10-PCS; principal; 2016-04-02)
DX: I50.33 Acute on chronic diastolic (congestive) heart failure (principal); J96.01 Acute respiratory failure with hypoxia; J96.02 Acute respiratory failure with hypercapnia; G93.40 Encephalopathy, unspecified; E87.2 Acidosis; J44.0 Chronic obstructive pulmonary disease with (acute) lower respiratory infection; J44.1 Chronic obstructive pulmonary disease with (acute) exacerbation; I10 Essential (primary) hypertension; F32.9 Major depressive disorder, single episode, unspecified; F17.210 Nicotine dependence, cigarettes, uncomplicated; J20.9 Acute bronchitis, unspecified
CPT/HCPCS: 36600; 71010; 80048; 80053; 80061; 81001; 81003; 82550; 82553; 82803; 83036; 83605; 83735; 83880; 84100; 84436; 84479; 84484; 85025; 85610; 85730; 87040; 87081; 87086; 93005; 93306; 94640; 94660; 94664; J0456; J0696; J1650; J1940; J2405; J2543; J3370; J7030; J7040; J7512